=== PATIENT | female | born 1960 | race Asian ===

== ENCOUNTER 2020-08-13 12:23 | Outpatient (NON) | payer BC, SELFPAY ==
[2020-08-13 23:48] LABS: SARS-CoV-2 RNA PCR Negative
== END 2020-08-13 12:24 ==
LOC: ANHCOVIDDT 12:25
PROVIDERS: PCP Family Medicine; Visit Provider Family Medicine
DX: Z20.828 Contact with and (suspected) exposure to other viral communicable diseases (principal)
CPT/HCPCS: 87635; C9803; U0003

== ENCOUNTER 2022-08-02 10:54 | Outpatient (CLI) | payer BC, SELFPAY ==
--- NOTE | ~2022-08-02 | MM_ITS ---
EXAMINATION: MM screening rickey BI w german HISTORY: Screening mammogram TECHNIQUE: Craniocaudal and mediolateral oblique 3-D tomosynthesis images were obtained and synthetic 2-D images were generated. CAD analysis was submitted and interpreted. COMPARISON: No prior mammogram is available for comparison at this institution. BREAST PARENCHYMAL COMPOSITION: FINDINGS: Small irregular approximately 1.8 mm focal hyperdensities noted in the posterior upper righ t breast on MLO view. Diagnostic right mammogram is recommended, with ultrasound if required. Otherwise there is no evidence of suspicious mass, calcification, or architectural distortion to sugg est malignancy in either breast. There has been no suspicious interval change. IMPRESSION: 1. 1.8 mm irregular hyperdensity in posterior upper right breast on MLO view 2. Diagnostic right mammogram is recommended, with ultrasound if required BI-RADS Category 0: Incomplete: Needs additional imaging evaluation. Reviewed, dictated and finalized at location A. DER OPERATOR
== END 2022-08-02 10:55 | disposition home or self-care (01) ==
LOC: ANHIMG 10:56
PROVIDERS: PCP Family Medicine; Visit Provider Family Medicine
DX: Z12.31 Encounter for screening mammogram for malignant neoplasm of breast (principal); R92.8 Other abnormal and inconclusive findings on diagnostic imaging of breast
CPT/HCPCS: 77063; 77067

== ENCOUNTER 2022-09-07 11:42 | Outpatient (CLI) | payer BC, SELFPAY ==
--- NOTE | ~2022-09-07 | MMUS_ITS ---
EXAMINATION: MM diagnostic rickey RT w german, US breast RT limited HISTORY: Follow-up right breast asymmetry TECHNIQUE: Additional 3-D tomosynthesis images of the right breast were performed and synthetic 2-D i mages were generated. CAD analysis was submitted and interpreted. High resolution right breast ultras ound was performed. COMPARISON: Comparison to multiple prior studies sequentially, with oldest reviewed study dated 04/08. BREAST PARENCHYMAL COMPOSITION: Breast composed of scattered areas of fibroglandular density FINDINGS: MAMMOGRAPHIC FINDINGS: No suspicious masses, calcifications or architectural distortion in the right breast to suggest tim alvarez. ULTRASOUND: Limited right breast ultrasound: Normal heterogeneous echotexture without focal solid or cystic mass. IMPRESSION: 1. No evidence for malignancy in the right breast. 2. Routine yearly screening mammogram and regular clinical breast examination are recommended. BI-RADS Category 1: Negative Reviewed, dictated and finalized at location B. PING MACHINE OPERATOR IMPRESSION: 1. No evidence for malignancy in the right breast. 2. Routine yearly screening mammogram and regular clinical breast examination a re recommended. BI-RADS Category 1: Negative
== END 2022-09-07 11:43 | disposition home or self-care (01) ==
LOC: ANHIMG 11:46
PROVIDERS: PCP Family Medicine; Visit Provider Family Medicine
DX: R92.2 Inconclusive mammogram (principal)
CPT/HCPCS: 76642; 77061; 77065; G0279

== ENCOUNTER 2025-04-03 01:46 | Day surgery (SDC) | payer MEDICARE, SELFPAY ==
[2025-03-13 13:46] VITALS: BMI 28.4
--- OUTSIDE RECORDS SUMMARY | 2025-04-03 01:51 | XMS_ITS | Clinical Summary ---
Author Organization [facility] Address [address] [place] [id number] Care Team Providers Care Fingernail Sculpturer Name Role Phone Unavailable Primary Care Provider Unavailabl e Social History Tobacco Use Types Packs/Day Years Used Date Smoking Tobacco: Never Assessed Comments Unknown Sex and Gender Information Value Date Recorded Sex Assigned at Not on file Legal Sex Female 7:49 PM CDT Gender Identity Not on file Sexual Orientation Not on file Plan of Treatment Health Maintenance Due Date Last Done Comments Colorectal Cancer Screening Colonoscopy (10 Years) 1960 Hepatitis C 01/04/1978 DTaP, Tdap and Td Vaccines ( 1 - Tdap) 01/04/1979 Mammogram Screening 2000 Pneumococcal Vaccine: 50+ Ye ars (1 of 1 - PCV) 01/04/2010 Zoster Vaccines (1 of 2) 01/04/2010 COVID-19 Vaccine ( - 2023-2 5 season) 2024 Dexa Scan (General) 01/04/2025 RSV Immunization or 60+ Years (1 - 1-dose 75+ series) 01/04/2035 Meningococcal B Vaccine Aged Out No l onger eligible based on patient's age to complete this topic Meningococcal Vaccine Aged Out No emanuel mary eligible based on patient's age to complete this topic RSV Immunizations Under 20 Months Aged Out No longer eligible based on patient's age to complete this topic
--- OUTSIDE RECORDS SUMMARY | 2025-04-03 01:51 | XMS_ITS | Clinical Summary ---
Author Organization [facility] Address [address] [place] [address] Care Team Providers Care Resident Care Coordinator Name Role Phone Pilo Turner MD Primary Care Provider [phone] Source Comments [facility],non-owned Affiliates and Associated Physician Practices is amultiple site organization consisting of ambulatory clinics and hospital sitesin [place], [place], [place] and [place]. This disclosure is being madepursuant to the Care Everywhere program and may not contain all information available regarding this patient. Last updated 18.[facility] Allergies No known active allergies Medications * Be aware that medications may not be up to date on this document. Alwaysverify current medications with the patient. oxycodone-acetam inophen (PERCOCET) 5-325 MG tablet Take 1 Tab by mouth every 4 hours as needed for Pain. 40 Tab 0 05/24/2013 Active cyclobenzaprine (FLEXERIL) 5 MG TABS tablet Take 1 Tab by mouth 3 times daily as needed. 30 Tab 1 05/24/2013 Active Active Problems Problem Noted Date Diagnosed Date Fracture of lumbar vertebra with routine healing 05/24/2013 Overview (05/24/2013): Healed fracture with loosening spinal hardware Immunizations Immunization Administration Dates Next Due FLU VACCINE QUAD IIV4 PF ID 08/24/2016 Social History Tobacco Use Types Packs/Day Years Used Date Smoking Tobacco: Every Day Cigarettes Tobacco Cessation:Ready to Q uit: No; Counseling Given: Yes Alcohol Use Standard Drinks/Week Comments No 0 (1 standard drink = 0.6 oz pur e alcohol) Comments No Sex and Gender Information Value Date Recorded Sex Assigned at Not on file Legal Sex Female 12:18 PM CDT Gender Identity Not on file Sexual Orientation Not on file Last Filed Vital Signs Vital Sign Reading Time Taken Comments Blood Pressure 118/74 08/15/2013 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 Pulse 75 05/24/2013 4:34 PM CDT Temperature 37 C (98.6 F) 08/15/2013 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 Respiratory Rate 16 05/24/2013 4:34 PM CDT Oxygen Saturation 98% 05/24/2013 4:34 PM CDT Inhaled Oxygen Concentration - - Weight 68 kg (150 lb) 08/15/2013 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 Height 170.2 cm (5' 7) 08/15/2013 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 Body Mass Index 23.49 08/15/2013 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 Plan of Treatment Health Maintenance Due Date Last Done Comments BONE DENSITY TESTING 1960 COLOGUARD (AGES 45-75) - COL ON CA SCREENING 1960 COLON MONITORING 1960 COLONOSCOPY - COLON CA SCREENING 1960 CT COLONOGRAPHY - COLON CA SCREENING 1960 Colorectal Cancer Screening 1960 FIT - COLON CA SCREENING 1960 FLEX SIG - COLON CA SCREENING 1960 LIPID TESTING 1960 MAMMOGRAM 1960 HIV SCREENING 01/04/1975 HEPATITIS C SCREENING 12/31/1977 DTAP/TDAP/TD VACCINES (1 - Tdap) 01/04/1979 PNEUMOCOCCAL VACCINE 50+ (1 of 1 - PCV) 01/04/2010 ZOSTER VACCINE (1 of 2) 01/04/2010 COVID-19 VACCINE ( - 2023-2 5 season) 2024 DEPRESSION SCREENING 09/26/2024 INFLUENZA VACCINE (Season Ended) 2025 08/24/20 16 Respiratory Syncytial Virus (RSV) Vaccine Pt: or over 60 yrs (1 - 1-dose 75+ series) 01/04/2035 HEPATITIS B VACCINE Aged Out No longe r eligible based on patient's age to complete this topic HIB VACCINE Aged Out No longer eligi ble based on patient's age to complete this topic HPV VACCINE Aged Out No longer eligi ble based on patient's age to complete this topic MENINGOCOCCAL (Group B) VACC INE SHARED DECISION-MAKING Aged Out No longer eligibl e based on patient's age to complete this topic MENINGOCOCCAL GROUPS A/C/Y/W VACCINE Aged Out No longer eligible b ased on patient's age to complete this topic Insurance [employer] [facility] [facility] Advance Directives * FULL RESUSCITATION (Latest Code Status on File) Date Activated Date Inactivated Comments 05/24/2013 11:20 AM 05/24/2013 7:56 PM Care Teams Resident Care Coordinator Relationship Specialty Start Date End Date Pilo Turner MD PCP - General Family Medicine 05/16/13
[2025-04-03 10:30] VITALS: BP 131/93; PULSE 74; RESP 16; TEMP 36.4; O2SAT 100; BMI 28.3
[2025-04-03] MEDS: LACTATED RINGERS 1,000 ML 150 ML IV CONT (11:01)
--- NOTE | 2025-04-03 11:04 | P.PNAN_ITS ---
Anes - Initial Pre Proc Eval Procedure: Operation Date: 04/03/25 11:00 Proposed Procedures p Screening Colonoscopy - Nicolás Rhodes MD Date/Time: 04/03/25 11:04 Surgeon: Nicolás Rhodes MD Pre Op Diagnosis: Screening Patient Data Age: 65 Gender: F Height: 1.68 m Weight: 79.6 kg Last Vital Signs Temp 97.6 F 04/03/25 10:30 Pulse 74 04/03/25 10:30 Resp 16 04/03/25 10:30 BP 131/93 H 04/03/25 10:30 Pulse Ox 100 04/03/25 10:30 O2 Del Method Room Air 04/03/25 10:30 Allergies Allergy/AdvReac Type Severity Reaction Status Date / Time No Known Allergies Allergy Mild Verified 04/03/25 10:37 Home Medications ?Medication ?Instructions ?Recorded ?Confirmed ?Type triamcinolone acetonide 55 mcg 1 spray intranasal BID 08/15/19 04/03/25 History nasal spray aerosol (Nasacort) atorvastatin 20 mg tablet 20 mg PO DAILY #90 tabs 10/02/24 04/03/25 Rx irbesartan 300 mg tablet 300 mg PO DAILY #90 tabs 10/02/24 04/03/25 Rx duloxetine 60 mg capsule,delayed 60 mg PO DAILY #90 caps 11/19/24 04/03/25 Rx release cholecalciferol (vitamin D3) 1 tablet PO DAILY 12/18/24 04/03/25 History coenzyme Q10 1 tablet PO DAILY 12/18/24 04/03/25 History mecobalamin (vitamin B12) 1 tablet PO DAILY 12/18/24 04/03/25 History ondansetron 4 mg disintegrating 4 mg PO Q6H PRN nausea and 03/13/25 Rx tablet vomiting #4 tabs montelukast 10 mg tablet 10 mg PO DAILY #90 tabs 04/01/25 04/03/25 Rx (Singulair) Patient hx anesthesia problems: none Family hx anesthesia problems: none Results Review: All pre-operative results and documents have been reviewed as part of the pre- operative evaluation. [facility] Past Medical History Medical History Rectal tenesmus Rectal pressure BMI 27.0-27.9,adult GERD (gastroesophageal reflux disease) (~02/2023) BMI 26.0-26.9,adult Overweight (BMI 25.0-29.9) Breast density (08/02/22) irregular 1.8 mm density right breast 08/02/2022 on mammogram. Additional views. Diagnostic mammogram and right breast ultrasound on 09/07/2022 were normal with routine follow-up annually. Lipoma (~03/16/22) left anterior shoulder Breast cancer screening by mammogram Chronic low back pain with bilateral sciatica worse on the left than the right with failure of pain management Left-sided carotid artery disease (04/14/21) severe plaque left external carotid artery on 04/14/2021 Mixed hyperlipidemia Total cholesterol 145, triglycerides 70, HDL 60, LDL 70 on 01/25/2022. total cholesterol 157, HDL 63, triglycerides 58, LDL 81 with ratio of 2.56/. Exposure to COVID-19 virus Seasonal allergic rhinitis Heart murmur Echocardiogram on 04/14/2021 unremarkable except for trace mitral regurgitation and trace tricuspid regurgitation with some sclerosis of the aortic valve no stenosis. Lumbago with sciatica, right side Family History Family History Mother Family history of cardiovascular disease, Onset Age: 83 Social History Social History Smoking packs per day: 0.3 Smoking cigarettes per day: 6.0 Years smoked: 40 Smoking pack-years: 12.00 Smoking status: Current every day smoker Tobacco type: cigarettes Alcohol intake: never Substance use: current Substance use type: does not use Current Housing: Decline to Answer Concerned About Future Housing: Decline to Answer Difficulty Paying Gas/Electric Bills: Decline to Answer Difficulty Paying for Meds: Decline to Answer Currently Unemployed: Decline to Answer Education: Decline to Answer Difficulty w/ Childcare or Family Care: Decline to Answer Living arrangements: with family Spiritual care concerns: No Anes - Eval Final PreProcedure Day of Procedure 04/03/25 11:04 Patient weight: overweight Lungs: normal air movement Airway: Mallampati scale class II Neurological: alert and oriented Last oral intake: >/= 8 hours ASA classification: II Emergent: no Anesthetic plan: proceed Anesthesia type and monitoring: general GIVS and standard monitoring Results Review: All pre-operative results and documents have been reviewed as part of the pre- operative evaluation. HTN, hyperlipidemia, pt smokes approx 7-8 cigs/day. Informed Consent: The patient's anesthetic plan and its attendant risks and benefits were discussed with the patient/family/POA. Questions were solicited and answers provided to the satisfaction of the patient/family/POA.
--- NOTE | 2025-04-03 12:00 | PM.IMHP ---
H&P: HPI History of Present Illness Date/Time: 04/03/25 12:00 Chief Complaint: Screening colonoscopy Narrative: This is the patient's first colonoscopy. There are no GI symptoms and there is no family history of colorectal cancer. Review of Systems Review of Systems: All systems reviewed & are unremarkable except as noted in HPI and below [facility] Past Medical History Medical History Rectal tenesmus Rectal pressure BMI 27.0-27.9,adult GERD (gastroesophageal reflux disease) (~02/2023) BMI 26.0-26.9,adult Overweight (BMI 25.0-29.9) Breast density (08/02/22) irregular 1.8 mm density right breast 08/02/2022 on mammogram. Additional views. Diagnostic mammogram and right breast ultrasound on 09/07/2022 were normal with routine follow-up annually. Lipoma (~03/16/22) left anterior shoulder Breast cancer screening by mammogram Chronic low back pain with bilateral sciatica worse on the left than the right with failure of pain management Left-sided carotid artery disease (04/14/21) severe plaque left external carotid artery on 04/14/2021 Mixed hyperlipidemia Total cholesterol 145, triglycerides 70, HDL 60, LDL 70 on 01/25/2022. total cholesterol 157, HDL 63, triglycerides 58, LDL 81 with ratio of 2.56/. Exposure to COVID-19 virus Seasonal allergic rhinitis Heart murmur Echocardiogram on 04/14/2021 unremarkable except for trace mitral regurgitation and trace tricuspid regurgitation with some sclerosis of the aortic valve no stenosis. Lumbago with sciatica, right side Family History Family History Mother Family history of cardiovascular disease, Onset Age: 83 Social History Social History Smoking packs per day: 0.3 Smoking cigarettes per day: 6.0 Years smoked: 40 Smoking pack-years: 12.00 Smoking status: Current every day smoker Tobacco type: cigarettes Alcohol intake: never Substance use: current Substance use type: does not use Current Housing: Decline to Answer Concerned About Future Housing: Decline to Answer Difficulty Paying Gas/Electric Bills: Decline to Answer Difficulty Paying for Meds: Decline to Answer Currently Unemployed: Decline to Answer Education: Decline to Answer Difficulty w/ Childcare or Family Care: Decline to Answer Living arrangements: with family Spiritual care concerns: No Meds Home Medications and Allergies Home Medications ?Medication ?Instructions ?Recorded ?Confirmed ?Type triamcinolone acetonide 55 mcg 1 spray intranasal BID 08/15/19 04/03/25 History nasal spray aerosol (Nasacort) atorvastatin 20 mg tablet 20 mg PO DAILY #90 tabs 10/02/24 04/03/25 Rx irbesartan 300 mg tablet 300 mg PO DAILY #90 tabs 10/02/24 04/03/25 Rx duloxetine 60 mg capsule,delayed 60 mg PO DAILY #90 caps 11/19/24 04/03/25 Rx release cholecalciferol (vitamin D3) 1 tablet PO DAILY 12/18/24 04/03/25 History coenzyme Q10 1 tablet PO DAILY 12/18/24 04/03/25 History mecobalamin (vitamin B12) 1 tablet PO DAILY 12/18/24 04/03/25 History ondansetron 4 mg disintegrating 4 mg PO Q6H PRN nausea and 03/13/25 Rx tablet vomiting #4 tabs montelukast 10 mg tablet 10 mg PO DAILY #90 tabs 04/01/25 04/03/25 Rx (Singulair) Allergies Allergy/AdvReac Type Severity Reaction Status Date / Time No Known Allergies Allergy Mild Verified 04/03/25 10:37 Vital Signs Vital Signs - 24 hr 04/03/25 10:30 Temperature 97.6 F Pulse Rate 74 Respiratory Rate 16 Blood Pressure 131/93 H Pulse Oximetry 100 Oxygen Delivery Room Air Exam Const: General: cooperative and healthy appearing Resp: Effort & Inspection: normal respiratory effort and able to speak in complete sentences Auscultation: clear to auscultation bilaterally Cardio: Rate: regular rate Rhythm: regular rhythm GI: Inspection: normal to inspection GI Palp: No No hepatosplenomegaly present Auscultation: normal bowel sounds Rectal Exam: deferred Skin: General skin exam: normal color Psych: Appearance: grossly normal Mental Status: mental status grossly normal Assessment and Plan Assessment and plan (1) Encounter for screening colonoscopy: Code(s): Z12.11 - Encounter for screening for malignant neoplasm of colon Status: Acute Assessment and Plan: The patient is deemed a good candidate for the procedure. Consent signed. Will proceed.
--- NOTE | 2025-04-03 12:28 | S_PTH ---
PATIENT: Bonifacio Holland LOC: [facility] U#:[id number] AGE/SX: 65/F ROOM: RE04/03/[address]: Nicolás Rhodes MD : 1960 BED: DIS: 04/03/2025 SPEC #: [id number] RECD: 04/03/25 13:14 STATUS: BHARAT REFaith #: [id number] MEKA: 04/03/25 12:[address]: Nicolás Rhodes DEPT: [facility] Surgical RECD BY: Rufina Mace ENTERED: 04/03/25 13:14 SP TYPE: Surgical OTHR DR: Pilo Turner MD Tissues: A - Colon Polypectomy B - Colon Polypectomy Procedures: Hematoxylin and Eosin Stain Gross and Microscopic Level 4
[2025-04-03 12:30] VITALS: BP 131/73; PULSE 69; RESP 17; O2SAT 100
[2025-04-03 12:40] VITALS: BP 126/75; PULSE 70; RESP 18; O2SAT 100
[2025-04-03 12:50] VITALS: BP 143/79; PULSE 67; RESP 20; O2SAT 100
== END 2025-04-03 13:01 | disposition home or self-care (01) ==
PROVIDERS: PCP Family Medicine; Referring Provider Nurse Practitioner Family; Visit Provider Internal Medicine Gastroenterology
PROC: 0DJD8ZZ Inspection of Lower Intestinal Tract, Via Natural or Artificial Opening Endoscopic (ICD-10-PCS; CPT 45378; principal; 2025-04-03 11:00)
DX: Z12.11 Encounter for screening for malignant neoplasm of colon (principal); D12.3 Benign neoplasm of transverse colon; D12.5 Benign neoplasm of sigmoid colon; I10 Essential (primary) hypertension; K21.9 Gastro-esophageal reflux disease without esophagitis; E78.2 Mixed hyperlipidemia; R01.1 Cardiac murmur, unspecified; G89.29 Other chronic pain; M54.42 Lumbago with sciatica, left side; M54.41 Lumbago with sciatica, right side; F17.210 Nicotine dependence, cigarettes, uncomplicated; Z86.79 Personal history of other diseases of the circulatory system; Z82.49 Family history of ischemic heart disease and other diseases of the circulatory system
CPT/HCPCS: 45385; 88305; J2003; J2704; J7120